=== PATIENT | female | born 1945 | race Caucasian/White ===

== ENCOUNTER 2017-09-23 15:21 | Emergency (ER) | payer MEDICARE ==
[~2017-09-23] VITALS: Ht 157.5 cm; Wt 58.0 kg
[~2017-09-23 15:21] MED LIST: ARIC5TAB PO; ASPI-516 CHEW; BACT800T5 PO; LEVO.075 PO
[2017-09-23 15:28] VITALS: BP 147/69; PULSE 70; RESP 16; TEMP 98.3; O2SAT 96
== END 2017-09-23 18:56 | disposition left against medical advice (07) ==
LOC: PHED 15:21
DX: R10.9 Unspecified abdominal pain (principal); Z53.21 Procedure and treatment not carried out due to patient leaving prior to being seen by health care provider
CPT/HCPCS: 99281